=== PATIENT | male | born 1995 | race Caucasian/White ===

== ENCOUNTER 2023-03-09 16:10 | Emergency (ER) | payer OTHER, SELFPAY ==
--- NOTE | 2023-03-09 16:18 | ED.EAR ---
HPI - Ear Problem General Chief complaint: Ear Stated complaint: Ear Pain Source: patient and RN notes reviewed History of Present Illness HPI Narrative: 27-year-old male presents to urgent care with complaints of congestion x1 month. Patient states his congestion has moved to his bilateral ears, mostly on the left. Patient reports fullness in bilateral ears and states it feels like he is in a tunnel. Denies any fevers, chills, chest pain, shortness of breath, vomiting. Some parts of this dictation were generated by voice recognition software and may contain typographical and/or grammatical inaccuracies. Related Data Allergies Allergy/AdvReac Type Severity Reaction Status Date / Time amoxicillin [From Augmentin] Allergy Rash Verified 03/09/23 16:22 clavulanic acid Allergy Rash Verified 03/09/23 16:22 [From Augmentin] Review of Systems Review of Systems: Pertinent positives and pertinent negatives per HPI. PMFSH Comments At the time of my signature, I reviewed and agree with the nursing past medical, surgical, social, and family history. There is no relevant family history pertinent to the patient complaint. Exam Narrative: GENERAL: This is a well-nourished, well-developed patient, in no apparent distress. HEAD: normocephalic, atraumatic. EYES: PERRL. Sclera clear/white. Vision is grossly intact. EARS: Left TM bulging and erythremic. NOSE: COngested THROAT: Mucous membranes moist, posterior pharynx clear. NECK: Neck supple, non-tender without lymphadenopathy, masses or thyromegaly. CARDIOVASCULAR: Regular rate and rhythm without murmurs, gallops, or rubs. RESPIRATORY: Clear to auscultation. Breath sounds equal bilaterally. No wheezes, rales, or rhonchi. GASTROINTESTINAL: Abdomen soft, non-tender, nondistended. Bowel sounds are active. No hepato-splenomegaly, or palpable masses. No guarding. SKIN: warm, intact with no suspicious lesions or rash, good texture and turgor. NEURO: awake, alert, and oriented to person, place and time. There were no obvious focal neurologic abnormalities. Course Course Level of Care: Express Care Visit Vital Signs Vital signs: Vital Signs Temperature 98.6 F 03/09/23 16:20 Pulse Rate 89 03/09/23 16:20 Respiratory Rate 20 03/09/23 16:20 Blood Pressure 179/97 H 03/09/23 16:20 Pulse Oximetry 100 03/09/23 16:20 Oxygen Delivery Room Air 03/09/23 16:20 Temperature 98.6 F 03/09/23 16:20 Pulse Rate 89 03/09/23 16:20 Respiratory Rate 20 03/09/23 16:20 Blood Pressure 179/97 H 03/09/23 16:20 Pulse Oximetry 100 03/09/23 16:20 Oxygen Delivery Room Air 03/09/23 16:20 Reviewed Medical Decision Making MDM Narrative Medical decision making narrative: Go to the ER for any new or worsening symptoms. Avoid smoking/second-hand smoke. Continue to take Tylenol or Motrin for pain. Increase your Vitamin C intake. Use a humidifier or vaporizer at night. Take Medications as prescribed. Drink plenty of water. 8-10 glasses per day. Use flonase 2 times per day for 5 days then as needed Take mucinex 2 times per day and be sure to take with 8oz of water. Follow up with Primary provider if not getting better. Pt states he is unsure exactly on his possible allergy but he was told he had a rash when he was baby after he was given PCN or another Abx. Pt agrees to try augmentin again and was instructed to stop taking it if he develops a rash or other new symptoms. Vital Signs Vital Signs: Vital Signs Temperature 98.6 F 03/09/23 16:20 Pulse Rate 89 03/09/23 16:20 Respiratory Rate 20 03/09/23 16:20 Blood Pressure 179/97 H 03/09/23 16:20 Pulse Oximetry 100 03/09/23 16:20 Oxygen Delivery Room Air 03/09/23 16:20 Temperature 98.6 F 03/09/23 16:20 Pulse Rate 89 03/09/23 16:20 Respiratory Rate 20 03/09/23 16:20 Blood Pressure 179/97 H 03/09/23 16:20 Pulse Oximetry 100 03/09/23 16:20 Oxygen Delivery Room Air 03/09/23 16:20
[2023-03-09 16:20] VITALS: BP 179/97; PULSE 89; RESP 20; TEMP 37; O2SAT 100
== END 2023-03-09 17:15 | disposition home or self-care (01) ==
PROVIDERS: Emergency Provider Nurse Practitioner Family; PCP Hospitalist
DX: H66.92 Otitis media, unspecified, left ear (principal); J32.9 Chronic sinusitis, unspecified
CPT/HCPCS: 99213; G0463